=== PATIENT | male | born 1940 | race Caucasian/White ===

== ENCOUNTER 2016-10-15 08:47 | Day surgery (SDC) | payer OTHER ==
[2016-10-15 11:22] VITALS: RESP 18
[2016-10-15 11:44] VITALS: BP 147/96; PULSE 67; TEMP 97.6; O2SAT 95
== END 2016-10-15 12:18 | disposition home or self-care (01) | DRG 951 ==
LOC: SURG 08:47
PROVIDERS: ATTEND Surgery
DX: Z12.11 Encounter for screening for malignant neoplasm of colon (principal); D12.3 Benign neoplasm of transverse colon; Z86.010 Personal history of colon polyps; K57.30 Diverticulosis of large intestine without perforation or abscess without bleeding; K64.4 Residual hemorrhoidal skin tags; D12.5 Benign neoplasm of sigmoid colon
CPT/HCPCS: J2001; J2704

== ENCOUNTER 2017-11-27 08:33 | Day surgery (SDC) | payer OTHER ==
[2017-11-27] MEDS ORDERED: BUPIVACAINE HCL 0.25% MPF 10 ML SOL INFIL ONE (09:06)
[2017-11-27] MEDS: DEXAMETHASONE SOD PHOS PF 10 MG/ML SOL IJ ONE ×4 (09:33→09:48)
[2017-11-27 09:47] VITALS: RESP 18
[2017-11-27 09:55] VITALS: PULSE 55; TEMP 98.6; O2SAT 95
[2017-11-27 10:04] VITALS: BP 146/93
== END 2017-11-27 10:18 | disposition home or self-care (01) | DRG 552 ==
LOC: SURG 08:33
PROVIDERS: ATTEND Nurse Anesthetist, Certified Registered
DX: M48.00 Spinal stenosis, site unspecified (principal)
CPT/HCPCS: J1100

== ENCOUNTER 2018-05-28 03:44 | Emergency (ER) | payer OTHER ==
[2018-05-28 04:02] VITALS: TEMP 98.6
[2018-05-28 04:40] LABS: BASOPHILS % (AUTO) 0 % (0-3); EOSINOPHILS % (AUTO) 0 % (0-9); HEMATOCRIT 45 % (39-53); HEMOGLOBIN 15.1 gm/dl (13.5-17.7); LYMPHOCYTES % (AUTO) 5.6 % (10-50); MEAN CORPUSCULAR HGB CONC 33.4 gm/dl (32.0-36.0); MEAN CORPUSCULAR VOLUME 96 fL (80-100); NEUTROPHILS % (AUTO) 80.8 % (37-80)
[2018-05-28 04:52] LABS: CALCIUM 8.5 mg/dl (8.5-10.1); CARBON DIOXIDE 29.6 mEq/L (21-32); CREATININE 0.88 mg/dl (0.80-1.30); POTASSIUM 3.6 mMol/L (3.5-5.1)
[2018-05-28 05:05] LABS: INR 3.57 (0.86-1.12)
[2018-05-28] MEDS ORDERED: APAP/HYDROCODONE 1 EACH TABLET PO ONE (05:09)
[2018-05-28] MEDS ORDERED: APAP/HYDROCODONE 1 EACH TABLET ONE (05:14)
[2018-05-28 05:48] VITALS: O2SAT 97
[2018-05-28 06:31] VITALS: BP 150/81; PULSE 75; RESP 24
== END 2018-05-28 06:18 | disposition home or self-care (01) | DRG 554 ==
LOC: ED 03:44
DX: M25.061 Hemarthrosis, right knee (principal); Z79.01 Long term (current) use of anticoagulants
CPT/HCPCS: 36415; 73560; 80048; 85025; 85610; 99283; 99284; A9270-GY; L1830

== ENCOUNTER 2018-05-30 00:50 | Inpatient (IN) | payer OTHER ==
[2018-05-30] MEDS ORDERED: LIDOCAINE HCL 1% MPF 30 SOL ONE (00:59)
[2018-05-30] MEDS ORDERED: LIDOCAINE HCL 1% MPF 30 SOL INFIL ONE (00:59)
[2018-05-30 01:15] LABS: BASOPHILS % (AUTO) 0 % (0-3); EOSINOPHILS % (AUTO) 0 % (0-9); HEMATOCRIT 44 % (39-53); LYMPHOCYTES % (AUTO) 2.1 % (10-50); MEAN CORPUSCULAR HEMOGLOBIN 32.4 pg (27.0-32.0); MEAN CORPUSCULAR HGB CONC 34.1 gm/dl (32.0-36.0); MEAN CORPUSCULAR VOLUME 95 fL (80-100); MONOCYTES % (AUTO) 3.7 % (0-12); NEUTROPHILS % (AUTO) 93.9 % (37-80)
[2018-05-30 01:19] LABS: APPEARANCE,URINE Clear; BILIRUBIN,URINE 1+ (NEGATIVE); COLOR,URINE Amber; GLUCOSE, URINE (UA) NEGATIVE (NEGATIVE); KETONES,URINE TRACE (NEGATIVE); LEUKOCYTE ESTERASE ,URINE NEGATIVE (NEGATIVE); NITRATE,URINE NEGATIVE (NEGATIVE); OCCULT BLOOD,URINE 2+ (NEG-TRACE); PH,URINE 5.5
[2018-05-30 01:25] LABS: INR 1.32 (0.86-1.12)
[2018-05-30 01:30] LABS: ALBUMIN 2.7 gm/dl (3.4-5.0); BILIRUBIN,TOTAL 1.6 mg/dl (0.2-1.0); CALCIUM 8.6 mg/dl (8.5-10.1); CARBON DIOXIDE 30.3 mEq/L (21-32); CREATININE 1.32 mg/dl (0.80-1.30); POTASSIUM 3.2 mMol/L (3.5-5.1); TOTAL PROTEIN 6.7 gm/dl (6.4-8.2)
[2018-05-30 01:36] LABS: BACTERIA 2+ (< 1+); CRYSTALS NEGATIVE (0-3 AVE/HPF); EPITHELIAL CELLS NEGATIVE (SQUAMOUS); ICTOTEST,URINE NEGATIVE (NEGATIVE); RBC,URINE 0-5 (0-3AV/HPF); WBC,URINE 0-2 (0-5AV/HPF)
[2018-05-30 01:37] LABS: LACTIC ACID 1.4 mMol/L (0.0-2.0)
[2018-05-30 02:00] LABS: CRP INFLAMMATORY 36.12 mg/dl (0.00-0.33)
[2018-05-30] MEDS ORDERED: ACETAMINOPHEN 500 MG 500 MG TAB PO ONE (02:21)
[2018-05-30] MEDS ORDERED: ACETAMINOPHEN 500 MG 500 MG TAB ONE (02:22)
[2018-05-30] MEDS ORDERED: APAP/HYDROCODONE 1 EACH TABLET PO PRN (02:34)
[2018-05-30] MEDS ORDERED: ACETAMINOPHEN 500 MG 500 MG TAB PO PRN (02:34)
[2018-05-30] MEDS ORDERED: SODIUM CHLORIDE 0.45% 1000 ML 1,000 ML with POTASSIUM CHLORIDE 2 MEQ/ML 20 MEQ IV ONE (02:39)
[2018-05-30] MEDS ORDERED: POTASSIUM CHLORIDE 2 MEQ/ML SOL IV ONE (02:40)
[2018-05-30] MEDS ORDERED: VANCOMYCIN HYDROCHLORIDE 500 MG PDS IV ONE ×2 (02:40→03:20)
[2018-05-30] MEDS ORDERED: CEFTRIAXONE 1 GM PDS ONE (02:40)
[2018-05-30] MEDS ORDERED: CEFTRIAXONE 1 GM PDS 2 GM in SODIUM CHLORIDE 0.9% 100 ML 100 ML IV SCH (02:45)
[2018-05-30] MEDS: SODIUM CHLORIDE 0.9% FLUSH 10 ML SOL IV SCH ×2 (03:13→10:43)
[2018-05-30] MEDS ORDERED: SODIUM CHLORIDE 0.9% 500 ML 500 ML IV ONE (03:20)
[2018-05-30] MEDS ORDERED: VANCOMYCIN HCL 500 MG PDS 1,500 MG in SODIUM CHLORIDE 0.9% 500 ML 500 ML IV SCH (03:30)
[2018-05-30] MEDS ORDERED: FUROSEMIDE 20 MG TAB ONE (08:53)
[2018-05-30] MEDS ORDERED: AMLODIPINE 5 MG TAB ONE (08:53)
[2018-05-30] MEDS ORDERED: POTASSIUM CHLORIDE 10 MEQ TER ONE (08:53)
[2018-05-30] MEDS ORDERED: CLOPIDOGREL 75 MG TAB ONE (08:53)
[2018-05-30] MEDS ORDERED: LEVETIRACETAM 250 MG TAB ONE (08:54)
[2018-05-30] MEDS ORDERED: LISINOPRIL 5 MG TAB ONE (08:54)
[2018-05-30] MEDS ORDERED: METOPROLOL SUCCINATE 50 MG ER TAB PO SCH (09:00)
[2018-05-30] MEDS ORDERED: DILTIAZEM ER 120 MG C24 PO SCH (09:00)
[2018-05-30] MEDS ORDERED: LISINOPRIL 20 MG TAB PO SCH (09:00)
[2018-05-30] MEDS ORDERED: WARFARIN SODIUM 5 MG TAB PO SCH (09:00)
[2018-05-30] MEDS ORDERED: ASPIRIN EC 81 MG PO SCH (09:00)
[2018-05-30] MEDS ORDERED: CHLORTHALIDONE 25 MG TAB PO SCH (09:45)
[2018-05-30 10:28] VITALS: BP 125/76; PULSE 89; RESP 28; TEMP 100.7; O2SAT 93
[2018-05-30] MEDS ORDERED: PRAVASTATIN SODIUM 20 MG TAB PO SCH (21:00)
[2018-05-31] MEDS ORDERED: WARFARIN SODIUM 2.5 MG TAB PO SCH (09:00)
== END 2018-05-30 12:15 | disposition short-term general hospital (02) | DRG 550 ==
LOC: ED 00:50 → ACUTE CARE 02:24
PROVIDERS: ADMIT Family Medicine; ATTEND Family Medicine
DX: M00.9 Pyogenic arthritis, unspecified (principal); R50.9 Fever, unspecified; M25.461 Effusion, right knee; Z79.01 Long term (current) use of anticoagulants
CPT/HCPCS: 20610; 36415; 80053; 81001; 85025; 85610; 87070; 87077; 87088; 87186; 87205; 89051; 99070; 99222; 99283; J0696; J3370; J3480; A6402; A9270-GY; J2001

== ENCOUNTER 2018-06-13 15:18 | Inpatient (IN) | payer OTHER ==
[2018-06-13] MEDS ORDERED: NAFCILLIN SODIUM IV SCH (20:30)
[2018-06-13] MEDS ORDERED: SODIUM CHLORIDE 0.9% IV SCH (20:30)
[2018-06-13] MEDS: SODIUM CHLORIDE 0.9% IV SCH (22:29)
[2018-06-13] MEDS: NAFCILLIN SODIUM IV SCH (22:29)
[2018-06-14] MEDS: NAFCILLIN SODIUM IV SCH ×7 (02:30→22:45)
[2018-06-14] MEDS: SODIUM CHLORIDE 0.9% IV SCH ×8 (02:30→22:45)
[2018-06-14] MEDS ORDERED: ALBUTEROL/IPRATROPIUM 1 VIAL SOL INH PRN (05:25)
[2018-06-14] MEDS: SODIUM CHLORIDE 0.9% FLUSH 10 ML SOL IV PRN ×5 (07:30→13:15)
[2018-06-14] MEDS ORDERED: ALBUTEROL NEB SOL 2.5MG/3ML 1 VIAL SOL INH PRN (07:33)
[2018-06-14] MEDS ORDERED: LISINOPRIL 40 MG PO SCH (09:00)
[2018-06-14] MEDS ORDERED: ACYCLOVIR 400 MG TAB PO SCH ×2 (09:00)
[2018-06-14] MEDS: LACTOBACILLUS ACIDOPHILUS/PE 1 TAB TAB PO SCH ×3 (09:00→18:10)
[2018-06-14] MEDS ORDERED: CHLORTHALIDONE 25 MG PO SCH (09:00)
[2018-06-14] MEDS ORDERED: LISINOPRIL 20 MG TAB PO SCH (09:00)
[2018-06-14] MEDS: DILTIAZEM ER 120 MG C24 PO SCH (09:03)
[2018-06-14] MEDS: POTASSIUM CHLORIDE 10 MEQ TER PO SCH ×2 (09:03→18:10)
[2018-06-14] MEDS: METOPROLOL SUCCINATE 50 MG ER TAB PO SCH (09:04)
[2018-06-14] MEDS: RIFAMPIN PO SCH (09:04)
[2018-06-14] MEDS ORDERED: GENTAMICIN SULFATE 40 MG/ML SOL ONE (12:08)
[2018-06-14] MEDS: GENTAMICIN SULFATE IV SCH (12:15)
[2018-06-14 12:29] LABS: INR 7.29 (0.86-1.12)
[2018-06-14 13:07] LABS: BASOPHILS % (AUTO) 1 % (0-3); EOSINOPHILS % (AUTO) 0 % (0-9); HEMATOCRIT 28 % (39-53); HEMOGLOBIN 9.1 gm/dl (13.5-17.7); LYMPHOCYTES % (AUTO) 6.8 % (10-50); MEAN CORPUSCULAR HGB CONC 32.1 gm/dl (32.0-36.0); MEAN CORPUSCULAR VOLUME 96 fL (80-100); MONOCYTES % (AUTO) 9.1 % (0-12); NEUTROPHILS % (AUTO) 83.2 % (37-80)
[2018-06-14] MEDS ORDERED: ACETAMINOPHEN 500 MG 500 MG TAB PO PRN (13:16)
[2018-06-14 13:19] LABS: ALBUMIN 1.5 gm/dl (3.4-5.0); CARBON DIOXIDE 28.3 mEq/L (21-32); CREATININE 2.11 mg/dl (0.80-1.30); POTASSIUM 4.3 mMol/L (3.5-5.1); TOTAL PROTEIN 4.8 gm/dl (6.4-8.2)
[2018-06-14] MEDS ORDERED: PRAVASTATIN SODIUM 20 MG TAB PO SCH (21:00)
[2018-06-15] MEDS: NAFCILLIN SODIUM IV SCH ×4 (03:00→15:13)
[2018-06-15] MEDS: SODIUM CHLORIDE 0.9% IV SCH ×5 (03:00→15:13)
[2018-06-15] MEDS: SODIUM CHLORIDE 0.9% FLUSH 10 ML SOL IV PRN ×6 (03:02→15:13)
[2018-06-15 08:24] LABS: ALBUMIN 1.5 gm/dl (3.4-5.0); BILIRUBIN,TOTAL 4.2 mg/dl (0.2-1.0); CALCIUM 7.3 mg/dl (8.5-10.1); CARBON DIOXIDE 25.2 mEq/L (21-32); CREATININE 3.22 mg/dl (0.80-1.30); POTASSIUM 4.4 mMol/L (3.5-5.1); TOTAL PROTEIN 5.8 gm/dl (6.4-8.2)
[2018-06-15 08:26] LABS: BASOPHILS % (AUTO) 1 % (0-3); EOSINOPHILS % (AUTO) 0 % (0-9); HEMATOCRIT 31 % (39-53); HEMOGLOBIN 9.8 gm/dl (13.5-17.7); LYMPHOCYTES % (AUTO) 7.1 % (10-50); MEAN CORPUSCULAR HEMOGLOBIN 30.7 pg (27.0-32.0); MEAN CORPUSCULAR HGB CONC 31.6 gm/dl (32.0-36.0); MEAN CORPUSCULAR VOLUME 97 fL (80-100); MONOCYTES % (AUTO) 6.9 % (0-12); NEUTROPHILS % (AUTO) 84.9 % (37-80)
[2018-06-15 08:29] LABS: INR 5.91 (0.86-1.12)
[2018-06-15] MEDS: DILTIAZEM ER 120 MG C24 PO SCH (10:27)
[2018-06-15] MEDS: METOPROLOL SUCCINATE 50 MG ER TAB PO SCH (10:27)
[2018-06-15] MEDS: LACTOBACILLUS ACIDOPHILUS/PE 1 TAB TAB PO SCH ×3 (10:27→17:39)
[2018-06-15] MEDS: POTASSIUM CHLORIDE 10 MEQ TER PO SCH ×2 (10:27→17:40)
[2018-06-15] MEDS: RIFAMPIN PO SCH (10:35)
[2018-06-15 11:01] VITALS: BP 102/65; PULSE 94; RESP 18; TEMP 97.8; O2SAT 97
[2018-06-15] MEDS ORDERED: SODIUM CHLORIDE 0.9% 1000ML 1,000 ML IV ONE (11:31)
[2018-06-15] MEDS ORDERED: SODIUM CHLORIDE 0.9% 100 ML 100 ML IV ONE (11:47)
[2018-06-15] MEDS ORDERED: GENTAMICIN SULFATE 40 MG/ML SOL ONE (11:47)
[2018-06-15] MEDS: GENTAMICIN SULFATE IV SCH (11:58)
[2018-06-15] MEDS ORDERED: SODIUM CHLORIDE 0.9% 1000ML 1,000 ML IV SCH (14:00)
[2018-06-15 16:16] LABS: CALCIUM 6.8 mg/dl (8.5-10.1); CARBON DIOXIDE 23.8 mEq/L (21-32); CREATININE 3.27 mg/dl (0.80-1.30); POTASSIUM 4.3 mMol/L (3.5-5.1)
[2018-06-16] MEDS ORDERED: RIFAMPIN 150 MG CAP PO SCH (09:00)
[2018-06-16] MEDS ORDERED: CHLORTHALIDONE 25 MG TAB PO SCH (09:00)
== END 2018-06-15 18:46 | disposition short-term general hospital (02) | DRG 550 ==
LOC: ACUTE CARE 19:50
PROVIDERS: ADMIT Family Medicine; ATTEND Family Medicine
PROC: F01L5YZ Range of Motion and Joint Integrity Assessment of Musculoskeletal System - Lower Back / Lower Extremity using Other Equipment (ICD-10-PCS; principal; 2018-06-14)
DX: M00.9 Pyogenic arthritis, unspecified (principal); I10 Essential (primary) hypertension; I48.91 Unspecified atrial fibrillation; Z79.01 Long term (current) use of anticoagulants
CPT/HCPCS: 36415; 36591; 80048; 80053; 85025; 85610; J1580; J7613; A4450; A6402; A9270-GY; J2700